=== PATIENT | female | born 1975 | race Caucasian/White ===

== ENCOUNTER → 2018-02-04 | Outpatient (CLI) | payer OTHER ==
[~2018-02-04] MED LIST: MULT-865 PO
--- NOTE | 2018-02-05 13:46 | RADIOLOGY IMAGING REPORT ---
FACILITY: [facility] - [place] PATIENT NAME: MARILYNN AGUIAR : [id number] MR: [id number] V: [id number] EXAM DATE: [id number] ORDERING PHYSICIAN: KARON RENE TECHNOLOGIST: Su Dean PROCEDURE:BILATERAL DIGITAL SCREENING MAMMOGRAM WITH CAD ASSISTED INTERPRETATION & 3D TOMOSYNTHESIS COMPARISON:None, baseline study. INDICATIONS:baseline FINDINGS: Breasts have scattered fibroglandular parenchymal densities. There are no mammographic findings concerning for malignancy. DIAGNOSTIC CATEGORY 1--NEGATIVE. RECOMMENDATIONS: ROUTINE MAMMOGRAM AND CLINICAL EVALUATION IN 1 YEAR. IMPRESSION: BIRADS 1: Negative. Dictated by: Albino Gillespie on 02/05/2018 at 9:14 Transcribed by: EVELINA on 02/05/2018 at 10:44 Approved by: Albino Gillespie on 02/05/2018 at 13:45 [facility]
== END ==
LOC: MAMO 00:53
PROVIDERS: ATTEND Physician Assistant
DX: Z12.31 Encounter for screening mammogram for malignant neoplasm of breast (principal)
CPT/HCPCS: 77063; 77067

== ENCOUNTER 2018-10-12 07:59 | Emergency (ER) | payer OTHER ==
[~2018-10-12 07:59] MED LIST changes: +FLUO30CR TP
--- NOTE | 2018-10-12 08:20 | ER Report ---
History and Physical Time Seen By MD: 08:16 Hx. of Stated Complaint: slight sob, tingly hands, pain in L calf -pt is concerned for dvt, had nuvaring inserted 3 weeks ago and last week drove for 12 hours HPI/ROS CHIEF COMPLAINT: Shortness of breath and tingling concerned about DVT or PE. HISTORY OF PRESENT ILLNESS: Patient is a 42-year-old otherwise healthy female with no significant past medical history for returned recently [place] [employer] [address] noted yesterday some tenderness to the medial aspect of the left calf. She felt some tingling into her left anterior thigh and today while running she had to stop approximately 3 times because she felt "short of breath and as if she was going to pass out." Patient is a nonsmoker. She does use no vomiting which has estrogen. No prior history of DVT or PE. She denies any swelling to her calves. She denies any recent surgery or traumatic injury. She denies fevers or chills. She does report some numbness to both sides of her fingers. REVIEW OF SYSTEMS: Constitutional: No fever, no chills. Eyes: No discharge. ENT: No sore throat. Cardiovascular: Chest pain Respiratory: Dyspnea Gastrointestinal: No abdominal pain, no vomiting. Genitourinary: No hematuria. Musculoskeletal: No back pain. Skin: No rashes. Neurological: No headache. Allergies: Coded Allergies: No Known Drug Allergies (Unverified , 05/09/16) Home Meds Active Scripts Fluocinolone/Tretinoin/H-Jenn (TRI-MAIA CREAM) 30 Gm Cream..g., 1 JALEESA TP QHS for 30 Days, #1 TUBE 1 Refill Prov:JULISSA SCHWAB NPC 04/23/18 Reported Medications Multivitamin (DAILY MULTIPLE VITAMIN) 1 Each Tablet, 1 TAB PO DAILY 05/09/16 Past Medical/Surgical History No contributory past medical history Smoking Status: Never Smoker Constitutional Vital Sign - Last 24 Hours 10/12/18 10/12/18 10/12/18 10/12/18 08:04 08:04 08:14 08:29 Temp 97.8 Pulse 76 68 65 Resp 14 B/P (MAP) 124/80 (95) 124/80 Pulse Ox 99 92 92 O2 Delivery Room Air 10/12/18 10/12/18 10/12/18 10/12/18 08:44 08:59 09:14 09:29 Pulse 69 ??? 67 71 B/P (MAP) 115/75 (88) Pulse Ox 93 99 95 10/12/18 10/12/18 10/12/18 09:30 09:44 09:59 Pulse 72 76 B/P (MAP) 106/80 (89) Pulse Ox 97 Physical Exam General Appearance: The patient is alert, has no immediate need for airway protection and no signs of toxicity. Eyes: Pupils equal and round no pallor or injection. ENT, Mouth: Mucous membranes are moist. Respiratory: There are no retractions, lungs are clear to auscultation. Cardiovascular: Regular rate and rhythm. Gastrointestinal: Abdomen is soft and non tender, no masses, bowel sounds normal. Neurological: Awake and alert Skin: Warm and dry, no rashes. Musculoskeletal: Neck is supple non tender. Extremities are nontender, nonswollen and have full range of motion. Calves are symmetrical in size, negative Homans sign Medical Decision Making Data Points Result Diagram: 10/12/1822 10/12/1822 Laboratory Hematology Test 10/12/18 08:22 Red Blood Count 4.65 M/uL (4.17-5.56) Mean Corpuscular Volume 89.0 fL (80.0-96.0) Mean Corpuscular Hemoglobin 29.8 pg (26.0-33.0) Mean Corpuscular Hemoglobin Concent 33.5 g/dL (32.0-36.0) Red Cell Distribution Width 12.5 % (11.5-14.5) Mean Platelet Volume 9.3 fL (7.2-11.1) Neutrophils (%) (Auto) 71.7 % (39.4-72.5) Lymphocytes (%) (Auto) 18.4 % (17.6-49.6) Monocytes (%) (Auto) 6.0 % (4.1-12.4) Eosinophils (%) (Auto) 3.2 % (0.4-6.7) Basophils (%) (Auto) 0.7 % (0.3-1.4) Nucleated RBC Relative Count (auto) 0.0 /100WBC Neutrophils # (Auto) 4.6 K/uL (2.0-7.4) Lymphocytes # (Auto) 1.2 K/uL (1.3-3.6) Monocytes # (Auto) 0.4 K/uL (0.3-1.0) Eosinophils # (Auto) 0.2 K/uL (0.0-0.5) Basophils # (Auto) 0.0 K/uL (0.0-0.1) Nucleated RBC Absolute Count (auto) 0.00 K/uL D-Dimer Quantitative (PE/DVT) 0.52 ug/ml (0-0.50) Sodium Level 144 mmol/L (137-145) Potassium Level 3.6 mmol/L (3.5-5.0) Chloride Level 109 mmol/L (98-107) Carbon Dioxide Level 24 mmol/L (22-31) Blood Urea Nitrogen 13 mg/dl (7-18) Creatinine 0.70 mg/dl (0.52-1.04) Glomerular Filtration Rate Calc > 60.0 Random Glucose 96 mg/dl (75-110) Calcium Level 9.3 mg/dl (8.4-10.2) Total Bilirubin 0.3 mg/dl (0.2-1.3) Aspartate Amino Transf (AST/SGOT) 19 U/L (0-35) Alanine Aminotransferase (ALT/SGPT) 18 U/L (0-56) Alkaline Phosphatase 36 U/L (0-126) Total Protein 7.0 g/dl (6.3-8.2) Albumin 4.2 g/dl (3.5-5.0) Human Chorionic Gonadotropin, Qual Negative (NEGATIVE) Chemistry Test 10/12/18 08:22 White Blood Count 6.5 k/uL (4.5-11.0) Red Blood Count 4.65 M/uL (4.17-5.56) Hemoglobin 13.9 g/dL (12.0-16.0) Hematocrit 41.4 % (34.0-47.0) Mean Corpuscular Volume 89.0 fL (80.0-96.0) Mean Corpuscular Hemoglobin 29.8 pg (26.0-33.0) Mean Corpuscular Hemoglobin Concent 33.5 g/dL (32.0-36.0) Red Cell Distribution Width 12.5 % (11.5-14.5) Platelet Count 201 K/uL (150-450) Mean Platelet Volume 9.3 fL (7.2-11.1) Neutrophils (%) (Auto) 71.7 % (39.4-72.5) Lymphocytes (%) (Auto) 18.4 % (17.6-49.6) Monocytes (%) (Auto) 6.0 % (4.1-12.4) Eosinophils (%) (Auto) 3.2 % (0.4-6.7) Basophils (%) (Auto) 0.7 % (0.3-1.4) Nucleated RBC Relative Count (auto) 0.0 /100WBC Neutrophils # (Auto) 4.6 K/uL (2.0-7.4) Lymphocytes # (Auto) 1.2 K/uL (1.3-3.6) Monocytes # (Auto) 0.4 K/uL (0.3-1.0) Eosinophils # (Auto) 0.2 K/uL (0.0-0.5) Basophils # (Auto) 0.0 K/uL (0.0-0.1) Nucleated RBC Absolute Count (auto) 0.00 K/uL D-Dimer Quantitative (PE/DVT) 0.52 ug/ml (0-0.50) Glomerular Filtration Rate Calc > 60.0 Calcium Level 9.3 mg/dl (8.4-10.2) Total Bilirubin 0.3 mg/dl (0.2-1.3) Aspartate Amino Transf (AST/SGOT) 19 U/L (0-35) Alanine Aminotransferase (ALT/SGPT) 18 U/L (0-56) Alkaline Phosphatase 36 U/L (0-126) Total Protein 7.0 g/dl (6.3-8.2) Albumin 4.2 g/dl (3.5-5.0) Human Chorionic Gonadotropin, Qual Negative (NEGATIVE) Coagulation Test 10/12/18 08:22 D-Dimer Quantitative (PE/DVT) 0.52 ug/ml ED Course/Re-evaluation ED Course 10/12/2018 8:19:55 am patient lives risk by well's PE score plan at this time will be d-dimer is negative patient effectively ruled out for thethromboembolic event. Family Doppler negative for DVT will discharge home. Decision to Disposition Date: Oct 12, 2018 Decision to Disposition Time: 11:39 Depart Departure Latest Vital Signs Vital Signs Date Time Temp Pulse Resp B/P (MAP) Pulse Ox O2 Delivery O2 Flow Rate FiO2 10/12/18 09:59 76 10/12/18 09:44 97 10/12/18 09:30 106/80 (89) 10/12/18 08:04 97.8 14 Room Air Impression: Primary Impression: Hyperventilation syndrome Condition: Improved Disposition: HOME OR SELF-CARE Patient Instructions: Hyperventilation (GEN) JEISON OSULLIVAN MD Oct 12, 2018 08:20
--- NOTE | 2018-10-12 08:28 | EKG ---
FACILITY: [facility] PATIENT NAME: MARILYNN AGUIAR : [id number] MR: [id number] V: [id number] EXAM DATE: ORDERING PHYSICIAN: JEISON OSULLIVAN TECHNOLOGIST: Test Reason : CP Blood Pressure : / mmHG Vent. Rate : 067 BPM Atrial Rate : 067 BPM P-R Int : 152 ms QRS Dur : 084 ms QT Int : 404 ms P-R-T Axes : 069 067 076 degrees QTc Int : 426 ms Normal sinus rhythm Normal ECG No previous ECGs available Confirmed by BRENDAN BARON ([id number]) on 10/12/2018 10:33:30 AM Referred By: Confirmed By:BRENDAN BARON
[2018-10-12 08:33] LABS: PLATELET COUNT, AUTOMATED 201 K/uL (150-450)
[2018-10-12] MEDS ORDERED: IOPAMIDOL 76% 150 ML INFUS BTL 150 ML ONE (09:04)
[2018-10-12] MEDS ORDERED: NS 0.9% 25 ML BAG 50 ML ONE (09:04)
--- NOTE | 2018-10-12 10:12 | RADIOLOGY IMAGING REPORT ---
FACILITY: [facility] - [place] PATIENT NAME: Yary Cam : 1975 MR: [id number] V: [id number] EXAM DATE: [id number] ORDERING PHYSICIAN: JEISON OSULLIVAN TECHNOLOGIST: Location: Patient: Yary Cam : 1975 Visit/Account:[id number] Date of Sevice: 10/12/2018 CT angiogram chest with contrast Indication: Short of breath. Comparison: None available. Technique: Axial CT images are obtained through the chest after administration of 75 mL Isovue 370 IV contrast. Reformatted coronal and sagittal images were reviewed as well as coronal MIP images. One o f the following dose optimization techniques was utilized in the performance of this exam: Automated exposure control; adjustment of the mA and/or kV according to the patient's size; or use of an iterat lisa reconstruction technique. Specific details can be referenced in the facility's radiology CT exa m operational policy. FINDINGS: There is no evidence of acute pulmonary embolism. No evidence of axillary adenopathy. No enlarged hilar or mediastinal nodes are seen. No pleural effusion or pericardial effusion is identified. No focal confluent infiltrate is identified. There is a peripheral 3-4 mm nodule seen within the rig ht lower lobe on image 168 of 292. A small peripheral nodule involves the right middle lobe on image 171 which measures 3-4 mm. A 2 mm nodule seen in the right middle lobe on image 195. Dependent low er lobe atelectasis is seen bilaterally. Biapical pleural-parenchymal scarring is seen. Views of the upper abdomen are unremarkable. No compression deformity of the thoracic spine. IMPRESSION: 1. No evidence of acute pulmonary embolism. 2. No focal confluent infiltrate or air bronchograms. 3. Small right-sided pulmonary nodules as detailed above. See recommendations as stated below. FLEISCHNER SOCIETY FOLLOW-UP GUIDELINES FOR NEWLY DETECTED INCIDENTAL NODULES IN PERSONS 35 YEARS OF AGE OR OLDER. *These recommendations do NOT apply to lung cancer screening, patients with immunosuppression or gene ents with a known primary malignancy. MULTIPLE SOLID NODULES If nodule size is < 6 mm: * Low risk patient ? No routine follow-up. * High risk patient ? Optional CT at 12 months. If nodule size is 6-8 mm: * Low risk patient ? CT at 3-6 months, then consider CT at 18-24 months if no change. * High risk patient ? CT at 3-6 months, then CT at 18-24 months if no change. If nodule size is > 8 mm: * Low risk patient ? CT at 3-6 months, then consider CT at 18-24 months if no change. * High risk patient ? CT at 3-6 months, then consider CT at 18-24 months if no change. LOW RISK PATIENT: Minimal or absent history of tobacco use and of other known risk factors. HIGH RISK PATIENT: Tobacco use, family history of lung cancer, upper pulmonary lobe location of nodul e, presence of emphysema, pulmonary fibrosis, older age. Pillo H, Marilu DP, Eliazaro JM, et al. Guidelines for Management of Incidental Pulmonary Nodules Dete cted on CT Images: From the Fleischner Society 2017. Radiology. [facility] Report Dictated By: Micky Hernandez at 10/12/2018 9:58 AM Report E-Signed By: Micky Hernandez at 10/12/2018 10:08 AM MARISSAN:LINDSAY
[2018-10-12] MEDS ORDERED: LORazepam 0.5 MG TAB PO ONE (10:20)
[2018-10-12 11:42] VITALS: BP 118/83
--- NOTE | 2018-10-12 11:45 | RADIOLOGY IMAGING REPORT ---
FACILITY: [facility] - [place] PATIENT NAME: Yary Cam : 1975 MR: [id number] V: [id number] EXAM DATE: ORDERING PHYSICIAN: JEISON OSULLIVAN TECHNOLOGIST: Location: [facility] [place] Patient: Yary Cam : 1975 Visit/Account:[id number] Date of Sevice: 10/12/2018 VENOUS DOPP LOW LEFT EXTREMITY HISTORY: elevated d dimer Concern for deep venous thrombus. COMPARISON: None. FINDINGS: Grayscale, duplex and color Doppler interrogation of the left lower extremity deep veins from common femoral vein to proximal calf was completed. Compression was performed where it was possible. The rig ht common femoral vein was not evaluated. Common femoral vein - Negative. Femoral vein - Negative. Deep femoral vein - Negative. Popliteal vein - Negative. Visualized deep calf veins - Negative. Popliteal fossa: Negative. Contralateral (right) common femoral vein: Not imaged. IMPRESSION: No evidence of acute deep venous thrombosis in the visualized veins of the left lower extremity. Report Dictated By: Gera Yeh at 10/12/2018 11:36 AM Report E-Signed By: Gera Yeh at 10/12/2018 11:36 AM WSN:[id number]
== END 2018-10-12 11:48 | disposition home or self-care (01) ==
LOC: ER 08:10
DX: F45.8 Other somatoform disorders (principal)
CPT/HCPCS: 71275; 84703; 85025; 85379; 93005; 93971; 99284; Q9967; 82040; 82247; 82310; 82374; 82435; 82565; 82947; 84075; 84132; 84155; 84295; 84450; 84460; 84520

== ENCOUNTER → 2019-03-08 | Outpatient (CLI) | payer OTHER ==
--- NOTE | 2019-03-09 08:28 | RADIOLOGY IMAGING REPORT ---
FACILITY: [facility] PATIENT NAME: MARILYNN AGUIAR : [id number] MR: [id number] V: [id number] EXAM DATE: ORDERING PHYSICIAN: KARON RENE TECHNOLOGIST: Valerie Zavala PROCEDURE: BILATERAL DIGITAL SCREENING MAMMOGRAM WITH CAD ASSISTED INTERPRETATION & 3D TOMOSYNTHESIS REASON FOR STUDY: Screening FAMILY HISTORY OF BREAST CANCER: None BREAST PROCEDURES/TREATMENTS: None COMPARISON: 02/04/18 VIEWS OBTAINED: Bilateral 2D & 3D full field CC & MLO projections & bilateral 2D full field XCC projections. BREAST DENSITY: The breasts are heterogeneously dense which can obscure small masses. MAMMOGRAM FINDINGS: The patient has nipple rings in place which she was apparently unable to remove. The parenchymal pattern has remained stable allowing for difference in mammographic technique & patient positioning. DIAGNOSTIC CATEGORY 2--BENIGN FINDING. RECOMMENDATIONS: ROUTINE MAMMOGRAM AND CLINICAL EVALUATION. IMPRESSION: BIRADS 2: Benign finding. Dictated by: Sheryl Miller M.D. on 03/08/2019 at 16:19 Transcribed by: JOSE E on 03/09/2019 at 8:20 Approved by: Sheryl Miller M.D. on 03/09/2019 at 8:23 [facility]
== END ==
LOC: MAMO 00:45
PROVIDERS: ATTEND Physician Assistant
DX: Z12.31 Encounter for screening mammogram for malignant neoplasm of breast (principal)
CPT/HCPCS: 77063; 77067